=== PATIENT | female | born 1930 | race Caucasian/White ===

== ENCOUNTER 2019-06-10 09:54 | Observation (INO) | payer MEDICARE ==
[~2019-06-10] VITALS: Ht 167.6 cm; Wt 56.0 kg
[~2019-06-10 09:54] MED LIST: AMLO5TAB PO; ASPI81TA52 PO; ERGO500014 PO; HYDR12.5 PO; LISI40TA4 PO; METF1000 PO; TIOT4MIS5 INH
[2019-06-10 10:30] LABS: BASOPHILS # (AUTO) 0.1 X10'3 (0-0.2); BASOPHILS % (AUTO) 1.3 % (0-1); EOSINOPHILS % (AUTO) 0.2 % (0-6); HEMATOCRIT 32.5 % (35.0-45.0); HEMOGLOBIN 11.4 g/dl (12.0-16.0); LYMPHOCYTES # (AUTO) 2.5 X10'3 (1.1-4.8); LYMPHOCYTES % (AUTO) 40.3 % (21-51); MEAN CORPUSCULAR HEMOGLOBIN 30.7 PG (27.0-31.0); MEAN CORPUSCULAR VOLUME 87.9 FL (78-98); MEAN PLATELET VOLUME 6.9 FL (7.4-10.4); MONOCYTES # (AUTO) 0.7 X10'3 (0-0.9); MONOCYTES % (AUTO) 11.7 % (2-12); NEUTROPHILS # (AUTO) 2.9 X10'3 (1.8-7.7); NEUTROPHILS % (AUTO) 46.5 % (42-75); PLATELET COUNT 197 X10'3 (140-440); RED CELL DISTRIBUTION WIDTH 13.6 % (11.5-14.5); WHITE BLOOD COUNT 6.1 X10'3 (4.5-11.0)
[2019-06-10 10:39] LABS: PARTIAL THROMBOPLASTIN TIME 27 SECONDS (22-32)
[2019-06-10 10:40] LABS: ALANINE AMINOTRANSFERASE 39 U/L (12-78); ALBUMIN 3.3 G/DL (3.4-5.0); ALBUMIN/GLOBULIN RATIO 1.1 (1.1-1.5); ALKALINE PHOSPHATASE 53 IU/L (46-116); ANION GAP 12 (8-16); ASPARTATE AMINO TRANSFERASE 44 U/L (10-37); BILIRUBIN,TOTAL 0.3 MG/DL (0.1-1.0); BLOOD UREA NITROGEN 38 MG/DL (7-18); BUN/CREATININE RATIO 22.1 (6.6-38.0); CALCIUM 8.3 MG/DL (8.5-10.1); CHLORIDE 100 MMOL/L (99-107); CREATININE 1.72 MG/DL (0.40-0.90); GLUCOSE 120 MG/DL (70-104); POTASSIUM 4.1 MMOL/L (3.5-5.1); SODIUM 137 MMOL/L (135-145); TOTAL CARBON DIOXIDE 25.2 MMOL/L (24-32); TOTAL PROTEIN 6.4 G/DL (6.4-8.2); eGFR 28 ML/MIN
--- NOTE | 2019-06-10 11:36 | NUR ---
Attempted straight cath x 2 but unable to obtain sample d/t hidden anatomy. Will attempt clean catch from bedside commode.
[2019-06-10 12:07] LABS: CLARITY,URINE CLEAR (Clear); COLOR,URINE YELLOW (Yellow); GLUCOSE, URINE NEGATIVE (Neg); KETONES,URINE NEGATIVE (Neg); LEUKOCYTE ESTERASE ,URINE NEGATIVE (Neg); NITRITES, URINE NEGATIVE (Neg); OCCULT BLOOD,URINE NEGATIVE (Neg); PROTEIN,URINE NEGATIVE (Neg); UROBILINOGEN,URINE 0.2 E.U/dL (0.2-1.0)
[2019-06-10 12:10] LABS: UA COLLECTION TYPE CLN CATCH MIDSTREAM
[2019-06-10] MEDS ORDERED: mag hydrox/Alum hydrox/simeth 30ml oral suspension PO PRN (12:45)
[2019-06-10] MEDS ORDERED: acetaminophen 325mg tablet PO PRN (12:45)
[2019-06-10] MEDS ORDERED: ondansetron/PF 4mg/2ml inj IV PRN (12:45)
[2019-06-10] MEDS ORDERED: magnesium hydroxide 30ml (MOM) UD suspension PO PRN (12:45)
[2019-06-10] MEDS ORDERED: CLOP75TA35 PO (12:48)
[2019-06-10] MEDS ORDERED: ATOR40TA PO (12:48)
[2019-06-10] MEDS ORDERED: ERGO500014 PO (12:52)
--- NOTE | 2019-06-10 12:53 | NUR ---
Pt is aware of the plan of care including admission and pending admission orders.
[2019-06-10] MEDS: normal saline 1000ml 1,000 ML IV SCH ×2 (13:22→23:18)
--- NOTE | 2019-06-10 13:59 | NUR ---
RECEIVED REPORT FROM MING SCOTT IN ER
[2019-06-10 14:09] VITALS: BP 160/53
[2019-06-10] MEDS ORDERED: aspirin 325mg tablet PO ONE (15:50)
[2019-06-10] MEDS ORDERED: ergocalciferol (Vitamin D) 50,000 unit capsule PO SCH (15:55)
--- NOTE | 2019-06-10 18:07 | NUR ---
GAVE REPORT TO MING ZAMORA
[2019-06-10 18:22] VITALS: BP 136/56
[2019-06-10 20:00] VITALS: BP_SYST 119; BP_SYST 122; BP_SYST 139; BP_DIAS 43; BP_DIAS 44; BP_DIAS 52
[2019-06-10 22:00] VITALS: BP 119/44
[2019-06-11] VITALS (14 sets, daily range): BP systolic 114–155; BP diastolic 46–118
--- NOTE | 2019-06-11 06:26 | NUR ---
Problems reprioritized. Patient report given, questions answered & plan of care reviewed with MING LAM.
[2019-06-11 06:41] LABS: BASOPHILS % (AUTO) 0.4 % (0-1); EOSINOPHILS % (AUTO) 0.4 % (0-6); HEMOGLOBIN 10.4 g/dl (12.0-16.0); LYMPHOCYTES # (AUTO) 2.6 X10'3 (1.1-4.8); MEAN CORPUSCULAR HGB CONC 34.7 g/dL (33.0-36.5); MEAN CORPUSCULAR VOLUME 89.3 FL (78-98); MEAN PLATELET VOLUME 6.8 FL (7.4-10.4); MONOCYTES # (AUTO) 0.6 X10'3 (0-0.9); MONOCYTES % (AUTO) 9.1 % (2-12); NEUTROPHILS # (AUTO) 3.3 X10'3 (1.8-7.7); NEUTROPHILS % (AUTO) 50.1 % (42-75); PLATELET COUNT 197 X10'3 (140-440); RED BLOOD COUNT 3.35 X10'6 (4.20-5.60); RED CELL DISTRIBUTION WIDTH 13.7 % (11.5-14.5); WHITE BLOOD COUNT 6.5 X10'3 (4.5-11.0)
[2019-06-11 07:14] LABS: ALBUMIN 2.8 G/DL (3.4-5.0); ANION GAP 8 (8-16); BLOOD UREA NITROGEN 22 MG/DL (7-18); BUN/CREATININE RATIO 17.9 (6.6-38.0); CALCIUM 8.5 MG/DL (8.5-10.1); CHLORIDE 103 MMOL/L (99-107); CHOL/HDL RATIO 1.5 (0.00-4.99); CHOLESTEROL 110 MG/DL (0-200); CREATININE 1.23 MG/DL (0.40-0.90); GLUCOSE 95 MG/DL (70-104); HDL CHOLESTEROL 73 MG/DL (35-60); LDL CHOLESTEROL 32 MG/DL (50-100); SODIUM 135 MMOL/L (135-145); TOTAL CARBON DIOXIDE 23.7 MMOL/L (24-32); TRIGLYCERIDES 72 MG/DL (20-135); eGFR 41 ML/MIN
[2019-06-11] MEDS: normal saline 1000ml 1,000 ML IV SCH ×4 (08:42→23:48)
--- NOTE | 2019-06-11 10:00 | NUR ---
Pt has returned to her room from MRI
[2019-06-11] MEDS: aspirin 81mg tablet.DR PO SCH (10:16)
[2019-06-11] MEDS: atorvastatin 20mg tablet PO SCH (10:16)
[2019-06-11] MEDS: clopidogrel 75mg tablet PO SCH (10:16)
--- NOTE | 2019-06-11 12:21 | NUR ---
Student documentation: I have reviewed and agree with all interventions, assessments performed and documented by Darío VASQUEZ. Addendum: 06/11/19 at 1221 by Saida Can RN Amended: Links added.
[2019-06-11] MEDS ORDERED: vancomycin/NS 1 GM ADD-VANTAGE 250 ML IV ONE (12:55)
[2019-06-11] MEDS ORDERED: ceFAZolin 1000mg inj IV ONE (12:55)
[2019-06-11] MEDS ORDERED: clindamycin 600mg/D5W 50ml 50 ML IV ONE ×2 (13:20→14:40)
[2019-06-11] MEDS ORDERED: midazolam 2 mg/2 ml injection ONE (14:40)
[2019-06-11] MEDS ORDERED: fentaNYL/PF 50MCG/1 ML 2ML syringe ONE (14:40)
[2019-06-11] MEDS ORDERED: vancomycin 1,000mg inj ONE (14:41)
[2019-06-11] MEDS ORDERED: LIDOcaine 1% W/epiNEPHrine 1:100,000 20ml vial ONE (14:41)
--- NOTE | 2019-06-11 15:27 | NUR ---
Pt going to quality control lab technician, Pt cleaned with theodore wipes and shaved
--- NOTE | 2019-06-11 16:36 | NUR ---
Received patient from sleep lab technologist.
--- NOTE | 2019-06-11 18:53 | NUR ---
Student Medication Administration: For this medication-pass time frame, all medication were reviewed, dispensed, administered and documented per hospital policy by Darío VASQUEZ. Report to November MING
[2019-06-12] MEDS: normal saline 1000ml 1,000 ML IV SCH (04:42)
[2019-06-12 06:00] VITALS: BP 148/56
[2019-06-12 06:02] LABS: BASOPHILS % (AUTO) 0.4 % (0-1); EOSINOPHILS % (AUTO) 0.5 % (0-6); HEMATOCRIT 30.4 % (35.0-45.0); HEMOGLOBIN 10.3 g/dl (12.0-16.0); LYMPHOCYTES # (AUTO) 2.9 X10'3 (1.1-4.8); LYMPHOCYTES % (AUTO) 40.7 % (21-51); MEAN CORPUSCULAR HEMOGLOBIN 30.6 PG (27.0-31.0); MEAN PLATELET VOLUME 6.7 FL (7.4-10.4); MONOCYTES # (AUTO) 0.6 X10'3 (0-0.9); MONOCYTES % (AUTO) 8.5 % (2-12); NEUTROPHILS # (AUTO) 3.6 X10'3 (1.8-7.7); NEUTROPHILS % (AUTO) 49.9 % (42-75); PLATELET COUNT 185 X10'3 (140-440); RED BLOOD COUNT 3.38 X10'6 (4.20-5.60); RED CELL DISTRIBUTION WIDTH 13.8 % (11.5-14.5); WHITE BLOOD COUNT 7.2 X10'3 (4.5-11.0)
[2019-06-12 06:24] LABS: ALBUMIN 2.8 G/DL (3.4-5.0); ANION GAP 8 (8-16); BLOOD UREA NITROGEN 17 MG/DL (7-18); BUN/CREATININE RATIO 15.2 (6.6-38.0); CHLORIDE 106 MMOL/L (99-107); CREATININE 1.12 MG/DL (0.40-0.90); GLUCOSE 102 MG/DL (70-104); POTASSIUM 4.3 MMOL/L (3.5-5.1); SODIUM 141 MMOL/L (135-145); TOTAL CARBON DIOXIDE 27.1 MMOL/L (24-32); eGFR 46 ML/MIN
[2019-06-12] MEDS: aspirin 81mg tablet.DR PO SCH (08:09)
[2019-06-12] MEDS: clopidogrel 75mg tablet PO SCH (08:09)
[2019-06-12] MEDS: atorvastatin 20mg tablet PO SCH (08:10)
== END 2019-06-12 11:05 | disposition home or self-care (01) ==
LOC: ER 09:54 → ED HOLD 12:49 → ORTHO 4S 14:05
PROVIDERS: ADMIT Family Medicine; ATTEND Family Medicine
DX: R55 Syncope and collapse (principal); R53.1 Weakness; E11.22 Type 2 diabetes mellitus with diabetic chronic kidney disease; I12.9 Hypertensive chronic kidney disease with stage 1 through stage 4 chronic kidney disease, or unspecified chronic kidney disease; N18.9 Chronic kidney disease, unspecified; I25.10 Atherosclerotic heart disease of native coronary artery without angina pectoris; N17.9 Acute kidney failure, unspecified; Z90.13 Acquired absence of bilateral breasts and nipples; Z90.49 Acquired absence of other specified parts of digestive tract; Z90.710 Acquired absence of both cervix and uterus; Z95.5 Presence of coronary angioplasty implant and graft; Z79.82 Long term (current) use of aspirin; Z79.84 Long term (current) use of oral hypoglycemic drugs; Z79.899 Other long term (current) drug therapy; Z88.0 Allergy status to penicillin; W19.XXXA Unspecified fall, initial encounter; Y92.000 Kitchen of unspecified non-institutional (private) residence as the place of occurrence of the external cause; Y93.89 Activity, other specified
CPT/HCPCS: 36415; 70450; 70544; 70551; 71045; 72125; 80048; 80053; 80061; 81003; 82948; 84484; 85025; 85610; 85730; 87081; 93005; 93306; 93460; 93880; 96360; 96361; 97110; 97112; 97116; 97161; 97530; 99284; C1769; C1894; G0378; J2250; J3010; J3370; J7030; 99152; 99153; A4620; A6258; C1760; J0690; J3490